=== PATIENT | female | born 1995 | race Caucasian/White ===

== ENCOUNTER 2020-02-17 13:04 | Emergency (ER) | payer MEDICAID, SELFPAY ==
[2020-02-17 13:07] VITALS: BP 128/71; PULSE 95; RESP 18; TEMP 36.6; O2SAT 97; BMI 29.2
--- NOTE | 2020-02-17 13:18 | XRR_ITS ---
PROCEDURE INFORMATION: Exam: XR Left Wrist Exam date and time: 02/17/2020 1:28 PM Age: 25 years old Clinical indication: Pain; Wrist; Left; Additional info: Trauma TECHNIQUE: Imaging protocol: XR Left wrist. Views: 1 or 2 views. COMPARISON: No relevant prior studies available. FINDINGS: Bones/joints: Normal. Soft tissues: Normal. XR/XR wrist LT w scaphoid [id number] IMPRESSION: 1. No acute findings. 2. If pain persists, repeat images and/or MRI is recommended in 7-10 days to rule out occult pathology if clinically indicated.
--- NOTE | 2020-02-17 13:18 | XRR_ITS ---
PROCEDURE INFORMATION: Exam: XR Left Hand Exam date and time: 02/17/2020 1:28 PM Age: 25 years old Clinical indication: Pain; Hand; Left; Additional info: Trauma TECHNIQUE: Imaging protocol: XR Left hand. Views: 3 or more views. COMPARISON: No relevant prior studies available. FINDINGS: Bones/joints: Normal. Soft tissues: Normal. XR/XR hand LT min 3V* [id number] IMPRESSION: No acute findings.
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
[2020-02-17] MEDS: HYDROcodone-acetaminophen 5-325 mg Tablet 1 TAB PO (14:13)
== END 2020-02-17 15:05 | disposition home or self-care (01) ==
PROVIDERS: Emergency Provider Registered Nurse
DX: L03.114 Cellulitis of left upper limb (principal); S63.502A Unspecified sprain of left wrist, initial encounter; X58.XXXA Exposure to other specified factors, initial encounter
CPT/HCPCS: 12345; 29125; 73110; 73130; 99281; 99283